=== PATIENT | female | born 1985 ===

== ENCOUNTER 2020-04-15 17:52 | Emergency (ER) | payer OTHER ==
[~2020-04-15] VITALS: Ht 160 cm; Wt 54.4 kg
[2020-04-15] MEDS ORDERED: PROTONIX40 MG PO (18:39)
== END 2020-04-15 19:24 | disposition home or self-care (01) ==
LOC: ED 17:52
DX: K21.0 Gastro-esophageal reflux disease with esophagitis (principal)
CPT/HCPCS: 99283